=== PATIENT | female | born 1975 | race Caucasian/White ===

== ENCOUNTER 2016-04-30 13:43 | Emergency (ER) | payer OTHER ==
[~2016-04-30] VITALS: Ht 176.5 cm; Wt 104.5 kg
[~2016-04-30 13:43] MED LIST: AMOX-366 PO; HYDR-4003 PO; METR500T19 PO; ONDA-53 PO
[2016-04-30 13:45] VITALS: BP 143/101; PULSE 84; RESP 20; O2SAT 100
--- NOTE | 2016-04-30 13:53 | ED.REPORT ---
HPI-Abd Pain F 40 and Over Date of Service Apr 30, 2016 ED Provider: Jose Elias Jean DO 41 year old female with a history of uterine fibroids and tubal ligation presents to the ER due to heavy vaginal bleeding. At 02:00 this morning upon awakening to urinate she noticed that her normal menstrual period had started, and her tampon and pad were completely soaked. Since then she has been soaking through a supersized tampon and pad every 2 hours. Associated symptom of dizziness, which caused her visit to the ER today out of concern for excessive blood loss. Patient denies pain, fever, and chills. She admits to history of similar x3. Nursing Notes Stated Complaint: BLEEDING/ON PERIOD Chief Complaint: Female Abdominal Pain Nursing Notes Reviewed: Yes Allergies: Coded Allergies: TAPE (Verified Allergy, Unknown, 04/30/16) erythromycin base (Verified Allergy, Unknown, 04/30/16) Scheduled Amoxicillin/Clav K 875-125 mg (Augmentin 875-125 mg) 1 Each Tablet 1 TABLET PO BID Medroxyprogesterone Acetate (Provera) 10 Mg Tablet 20 MG PO DAILY Metronidazole (Metronidazole) 500 Mg Tablet 500 MG PO QID Ondansetron (Ondansetron) 4 Mg Tablet 4 MG PO q4 Scheduled PRN Hydrocodone-Acetaminophen 5-325 mg (Hydrocodone-Acetaminophen 5-325 mg) 1 Each Tablet 1-2 TABLET PO Q4H PRN PRN For Pain General Time Seen by MD: 13:52 Chief Complaint Vaginal bleeding Hx Obtained From: Patient Arrived By: Walk-in Sudden in Onset?: No Onset Occurred: 5 - 8 hours ago Context of Onset: Mid menstrual cycle Symptom Duration: Since onset Associated with: Denies: Chills, Fever Additional Notes: Dizziness Pertinent Negative: Pt denies other symptoms Past Medical History Past Medical History Patient reports history of uterine fibroids Reports: Cancer (thyroid) Past Surgical History thyroidectomy Reports: Cholecystectomy Reports: Tubal ligation Family History Reports: Diabetes mellitus, Hypertension Smoking History Current Every Day Smoker Social History Alcohol Use: "Social" Occupation Dealer Ambulatory Status Independent Review of Systems Constitutional: Denies: Chills, Fever GI: Denies: Nausea, Vomiting Female: Reports: Vaginal bleeding - abnl, Denies: Dysuria, Flank pain, Pelvic pain, , Urinary frequency, Urinary urgency Complete sys rev & neg: except as marked. Neurologic: Reports: Dizziness, Denies: Syncope Physical Exam Vital Signs Vital Signs (First) Date Time Temp Pulse Resp B/P Pulse Ox O2 Delivery O2 Flow Rate FiO2 04/30/16 13:45 36.7 84 20 143/101 100 Room Air Initial VS: Reviewed Head / Eyes: Atraumatic, Normocephalic Neck: Supple, Non-tender, Full range of motion Extremities: Vascular intact, Neuro intact, No swelling, No tenderness Skin: Warm, Dry, No cyanosis Neurologic: Alert, Oriented, Nonfocal General/Constitutional: Awake, Alert, Well developed, Well nourished Respiratory / Chest: Breath sounds NL, Breath sounds = bilat, No respiratory distress, No rales, No rhonchi, No wheezing, No stridor Cardiovascular: Heart rate NL, Regular rhythm, Heart sounds NL, Peripheral circulation NL Abdomen: Soft, Non-tender, No guarding, No rebound, No distention Back: Inspection NL, Non-tender, No CVA tenderness Interpretation & Diagnostics Lab Results Interpretation Result Diagram: 04/30/16 1405 04/30/16 1405 Test 04/30/16 14:05 04/30/16 14:25 White Blood Count 11.0th/mm3 (3.8-10.1) Red Blood Count 4.56mil/mm3 (3.90-5.20) Hemoglobin 13.8g/dL (12.0-15.6) Hematocrit 41.1% (35.0-46.0) Mean Corpuscular Volume 90.1fL (81-100) Mean Corpuscular Hemoglobin 30.3pg (27.0-35.0) Mean Corpuscular Hemoglobin Concent 33.6% (32.0-37.0) Red Cell Distribution Width 14.2% (12.3-15.4) Platelet Count 320bil/L (150-400) Neutrophils (%) (Auto) 68.1% (40-74) Lymphocytes (%) (Auto) 23.0% (14-46) Monocytes (%) (Auto) 5.4% (4-12) Eosinophils (%) (Auto) 1.9% (0-5) Basophils (%) (Auto) 1.3% (0-3) Sodium Level 135mEq/L (134-144) Potassium Level 3.7mEq/L (3.5-5.2) Chloride Level 100mEq/L (97-108) Carbon Dioxide Level 20mmol/L (18-29) Blood Urea Nitrogen 8mg/dL (6-24) Creatinine 0.95mg/dL (0.57-1.00) Estimat Glomerular Filtration Rate 93mL/min (>59) Glucose Level 113mg/dL (60-99) Calcium Level 8.6mg/dL (8.5-10.1) Magnesium Level 2.1mg/dL (1.6-2.6) Total Bilirubin 0.5mg/dL (0.0-1.2) Aspartate Amino Transf (AST/SGOT) 15U/L (0-50) Alanine Aminotransferase (ALT/SGPT) 11U/L (0-32) Alkaline Phosphatase 28U/L (25-150) Total Protein 7.4g/dL (6.4-8.4) Albumin 4.0g/dL (3.4-5.0) Hold Whitten Top Tube Received (Received) Re-Eval/Medical Decision Med Decision/Clinical Course 41-year-old female presenting with menorrhagia for 1 day, states she has soaked 24 pads/tampons in the last 24 hours. She has had this problem before, and required hormones to stop her bleeding. She is interested in finding a more definitive option to prevent this. She is a smoker so she cannot be started safely on estrogen control. I started her on Provera 20 mg daily and she can follow-up as an outpatient to discuss further options. Her hemoglobin is normal today. Source of Hx: Old records Re-Evaluation/Progress #1: Time of Eval: 15:10 Re-Evaluation/Progress Note: Discussed lab results and plan to discharge after bleeding is controlled. Patient is amenable to the plan. Return precautions given. All other questions addressed. Re-Evaluation/Progress #2: Time of Eval: 15:36 Re-Evaluation/Progress Note: Discussed OBGYN consult. Verbal discharge instructions given. All other questions addressed. Consultation : Referral / Consult Name: Josue Mccabe MD Consulted With: On-call physician (OBGYN) Call Returned at: 15:15 Note: Discussed patient case with NICK Cullen. Recommends Provera 20mg daily. Counseled Regarding: Diagnosis, Lab results, Need for follow-up, When/why to return to ED Discharge & Departure Primary Impression: Menorrhagia Menorrahagia type: with regular cycle Qualified Code: N92.0 - Excessive and frequent menstruation with regular cycle Additional Impression: Dizziness Disposition: Home Discharge Condition All VS Reviewed: Yes Condition: Stable Patient Instructions: Dysfunctional Uterine Bleeding (DC) Additional Instructions: Your workup today was reassuring. I do not believe that there is any dangerous cause for your symptoms at this time. Your lab results were all normal. Take Provera 20 mg daily as directed. Follow-up with Dr. pollock next week to discuss IUD placement versus surgical options. Return to the ER if you develop any worsening or concerning symptoms. Referrals: Anay Pollock MD (PCP) Scribe Attestation Portions of this note were transcribed by Reed Coulter. I, Dr. Jean personally performed the history, physical exam and medical decision-making; I reviewed and confirmed the accuracy of the information in the transcribed note. Signed by: Alejandro Wesley, 04/30/2016 and 16:24 copies to: Anay Pollock MD, Gary R DO Apr 30, 2016 13:53 REED COULTER Apr 30, 2016 14:18
[2016-04-30 14:13] LABS: BASOPHILS % (AUTO) 1.3 % (0-3); EOSINOPHILS % (AUTO) 1.9 % (0-5); MONOCYTES % (AUTO) 5.4 % (4-12); Mean Corpuscular Hemoglobin 30.3 pg (27.0-35.0); Mean Corpuscular Volume 90.1 fL (81-100); NEUTROPHILS % (AUTO) 68.1 % (40-74); Platelet Count 320 bil/L (150-400)
[2016-04-30 14:37] LABS: Magnesium 2.1 mg/dL (1.6-2.6)
[2016-04-30] MEDS ORDERED: MEDR10TA PO (15:33)
[2016-04-30] MEDS ORDERED: MedroxyPROGESTERone 5 mg Tablet PO ONE (15:35)
[2016-04-30 16:07] VITALS: BP 142/92; PULSE 66; RESP 16; O2SAT 99
== END 2016-04-30 16:09 | disposition home or self-care (01) ==
LOC: SED 13:43
DX: N92.0 Excessive and frequent menstruation with regular cycle (principal); R42 Dizziness and giddiness; F17.200 Nicotine dependence, unspecified, uncomplicated; Z85.850 Personal history of malignant neoplasm of thyroid; Z87.42 Personal history of other diseases of the female genital tract; Z90.49 Acquired absence of other specified parts of digestive tract; Z88.1 Allergy status to other antibiotic agents